=== PATIENT | female | born 1970 | race African-American/Black ===

== ENCOUNTER 2022-04-27 13:58 | Inpatient (IN) | payer MEDICAID, OTHER ==
[~2022-04-27] VITALS: Ht 165.1 cm; Wt 73.0 kg
[~2022-04-27 13:58] MED LIST: KEPP500 PO
[2022-04-27] MEDS ORDERED: SODIUM CHLORIDE 0.9% 1,000 ML IV ONE (14:30)
[2022-04-27] MEDS ORDERED: LEVETIRACETAM 500MG PREMIX 100 ML IV ONE (14:30)
[2022-04-27 15:37] LABS: HEMATOCRIT. 38.1 % (36.0-48.0); LYMPHOCYTES % 19.7 % (20.0-50.0); MEAN CORPUSCULAR HEMOGLOBIN 29.4 pg (28.0-32.0); MEAN CORPUSCULAR VOLUME 86.2 fL (81.0-99.0); MEAN PLATELET VOLUME 8.1 fl (7.4-10.4); MONOCYTES % 5.2 % (2.0-8.0); NEUTROPHILS % 74.1 % (40.0-76.0); PLATELET 281 x1000/uL (130-400); RED BLOOD CELL COUNT 4.41 mill/uL (4.2-5.4); RED CELL DISTRIBUTION WIDTH 15.4 % (11.6-14.6)
[2022-04-27 15:42] LABS: CHLORIDE 99 mEq/L (98-107)
[2022-04-27 15:56] LABS: ETHANOL BLOOD < 10 mg/dL
[2022-04-27 16:06] LABS: CARBAMAZEPINE < 0.5 ug/mL (4-12); VALPROIC ACID < 3.0 ug/mL (50-100)
[2022-04-27] MEDS ORDERED: KCL 20MEQ/100ML PREMIX 100 ML IV ONE (16:15)
[2022-04-27] MEDS ORDERED: ASPIRIN 81MG TABLET PO ONE (19:00)
[2022-04-27] MEDS ORDERED: ACETAMINOPHEN 325MG TABLET PO PRN ×2 (19:45)
[2022-04-27] MEDS ORDERED: HYDROCODONE/ACETAMINOPHEN 10/325MG TABLET PO PRN (19:45)
[2022-04-27] MEDS ORDERED: DOCUSATE SODIUM 100MG CAPSULE PO PRN (19:45)
[2022-04-27] MEDS ORDERED: IPRATROPIUM/ALBUTEROL 0.5-3(2.5)MG/3ML NEB HHN PRN (19:45)
[2022-04-27] MEDS ORDERED: ONDANSETRON HCL 4MG/2ML INJ IV PRN (19:45)
[2022-04-27] MEDS ORDERED: HYDROCODONE/ACETAMINOPHEN 5/325MG TABLET PO PRN (19:45)
[2022-04-27] MEDS ORDERED: CLONIDINE 0.1MG TABLET PO PRN (19:45)
[2022-04-27] MEDS ORDERED: LORAZEPAM 0.5MG TABLET PO PRN (19:45)
[2022-04-27 22:00] VITALS: BP 123/70
[2022-04-28] VITALS: BP 130/74
[2022-04-28 04:00] VITALS: BP 125/82
[2022-04-28 06:44] LABS: BASOPHILS % 0.9 % (0.0-2.0); EOSINOPHILS % 0.2 % (0.0-5.0); HEMATOCRIT. 36.2 % (36.0-48.0); HEMOGLOBIN. 11.8 g/dL (12.0-16.0); LYMPHOCYTES % 26.7 % (20.0-50.0); MEAN CORPUSCULAR HEMOGLOBIN 28.6 pg (28.0-32.0); MEAN CORPUSCULAR VOLUME 87.9 fL (81.0-99.0); MEAN PLATELET VOLUME 8.4 fl (7.4-10.4); MONOCYTES % 9.4 % (2.0-8.0); NEUTROPHILS % 62.8 % (40.0-76.0); PLATELET 273 x1000/uL (130-400); RED BLOOD CELL COUNT 4.11 mill/uL (4.2-5.4); RED CELL DISTRIBUTION WIDTH 15.3 % (11.6-14.6)
[2022-04-28 06:55] LABS: CHLORIDE 105 mEq/L (98-107)
[2022-04-28 08:00] VITALS: BP 150/75
[2022-04-28] MEDS ORDERED: POTASSIUM CHLORIDE 20MEQ TABLET SR PO SCH (08:00)
[2022-04-28] MEDS ORDERED: POTASSIUM CHLORIDE INJ 40 MEQ in DEXT 5% WATER 250 ML IV ONE (08:00)
[2022-04-28] MEDS: KCL 20MEQ/100ML X 2 FOR TOTAL KCL 40MEQ/200ML IV SCH ×2 (09:30→14:00)
[2022-04-28 12:00] VITALS: BP 153/73
[2022-04-28 13:22] LABS: CREATINE KINASE 129 IU/L (26-192)
[2022-04-28] MEDS: LEVETIRACETAM 500MG TABLET PO SCH ×2 (14:00→18:16)
[2022-04-28 16:00] VITALS: BP 143/83
[2022-04-28 20:00] VITALS: BP 144/90
[2022-04-28] MEDS: LAMOTRIGINE 25MG TABLET PO SCH (22:06)
[2022-04-29] VITALS: BP 147/89
[2022-04-29 04:00] VITALS: BP 141/78
[2022-04-29 06:57] LABS: BASOPHILS % 0.7 % (0.0-2.0); EOSINOPHILS % 0.8 % (0.0-5.0); HEMATOCRIT. 36.4 % (36.0-48.0); HEMOGLOBIN. 11.8 g/dL (12.0-16.0); LYMPHOCYTES % 38.2 % (20.0-50.0); MEAN CORPUSCULAR HEMOGLOBIN 28.5 pg (28.0-32.0); MEAN CORPUSCULAR VOLUME 87.6 fL (81.0-99.0); MEAN PLATELET VOLUME 8.5 fl (7.4-10.4); NEUTROPHILS % 51.3 % (40.0-76.0); PLATELET 277 x1000/uL (130-400); RED BLOOD CELL COUNT 4.16 mill/uL (4.2-5.4); RED CELL DISTRIBUTION WIDTH 15.4 % (11.6-14.6)
[2022-04-29 07:20] LABS: CHLORIDE 107 mEq/L (98-107)
[2022-04-29 08:00] VITALS: BP 142/86
[2022-04-29] MEDS: LEVETIRACETAM 500MG TABLET PO SCH ×2 (10:20→17:15)
[2022-04-29] MEDS: LAMOTRIGINE 25MG TABLET PO SCH (10:20)
[2022-04-29 12:00] VITALS: BP 138/86
[2022-04-29] MEDS ORDERED: POTASSIUM CHLORIDE 20MEQ TABLET SR PO SCH (12:45)
[2022-04-29 17:15] VITALS: BP_SYST 154; BP_DIAS 89; BP_DIAS 94
[2022-04-29 20:00] VITALS: BP 133/86
[2022-04-30] VITALS (7 sets, daily range): BP systolic 123–138; BP diastolic 70–84
[2022-04-30] MEDS ORDERED: LAM25 PO (07:21)
[2022-04-30] MEDS: LEVETIRACETAM 500MG TABLET PO SCH ×2 (09:21→17:10)
[2022-04-30] MEDS: LAMOTRIGINE 25MG TABLET PO SCH (09:21)
[2022-04-30] MEDS ORDERED: NALOXONE HCL 0.4MG/ML VIAL IV PRN (18:30)
[2022-05-01] VITALS: BP 129/80
[2022-05-01 04:00] VITALS: BP 128/76
[2022-05-01 08:00] VITALS: BP 137/73
[2022-05-01] MEDS: LAMOTRIGINE 25MG TABLET PO SCH (08:36)
[2022-05-01] MEDS: LEVETIRACETAM 500MG TABLET PO SCH (08:36)
[2022-05-01 12:00] VITALS: BP 138/84
== END 2022-05-01 17:00 | disposition home or self-care (01) | DRG 53 ==
LOC: ER 14:02 → 7WST 18:55 → ENRESERV 21:15
PROVIDERS: ADMIT Internal Medicine; ATTEND Internal Medicine
PROC: 4A00X4Z Measurement of Central Nervous Electrical Activity, External Approach (ICD-10-PCS; principal; 2022-04-29)
DX: G40.909 Epilepsy, unspecified, not intractable, without status epilepticus (principal); G92.8 Other toxic encephalopathy; I69.351 Hemiplegia and hemiparesis following cerebral infarction affecting right dominant side; G93.89 Other specified disorders of brain; D72.829 Elevated white blood cell count, unspecified; E87.6 Hypokalemia; R29.810 Facial weakness; R77.8 Other specified abnormalities of plasma proteins; I10 Essential (primary) hypertension; Z87.820 Personal history of traumatic brain injury; Z74.01 Bed confinement status
CPT/HCPCS: 36415; 70551; 71045; 80048; 80053; 80156; 80165; 80184; 80185; 80320; 82550; 83735; 84484; 85025; 93005; 93306; 95816; 99285; J1953; J3480; J7030; G0480

== ENCOUNTER 2023-04-06 04:39 | Emergency (ER) | payer MEDICAID, OTHER ==
[~2023-04-06] VITALS: Ht 172.7 cm; Wt 91.0 kg
[~2023-04-06 04:39] MED LIST changes: -KEPP500 PO; +LAM25 PO; +LEVE750T4 MT
[2023-04-06 04:42] VITALS: O2SAT 99
[2023-04-06 05:06] VITALS: TEMP 98.2
[2023-04-06] MEDS ORDERED: LEVETIRACETAM 1000MG PREMIX 100 ML IV ONE (05:15)
[2023-04-06 05:42] LABS: BASOPHILS % 0.8 % (0.0-2.0); EOSINOPHILS % 0.7 % (0.0-5.0); HEMATOCRIT. 45.6 % (36.0-48.0); HEMOGLOBIN. 14.6 g/dL (12.0-16.0); LYMPHOCYTES % 18.6 % (20.0-50.0); MEAN CORPUSCULAR HEMOGLOBIN 28.6 pg (28.0-32.0); MEAN CORPUSCULAR HGB CONC 32.1 g/dL (31.0-37.0); MEAN CORPUSCULAR VOLUME 89.1 fL (81.0-99.0); MEAN PLATELET VOLUME 8.1 fl (7.4-10.4); MONOCYTES % 5.4 % (2.0-8.0); NEUTROPHILS % 74.5 % (40.0-76.0); PLATELET 326 x1000/uL (130-400); RED BLOOD CELL COUNT 5.11 mill/uL (4.2-5.4); RED CELL DISTRIBUTION WIDTH 15.8 % (11.6-14.6); WHITE BLOOD COUNT 10.7 x1000/uL (4.5-11.0)
[2023-04-06 05:53] LABS: CHLORIDE 106 mEq/L (98-107); INDEX HEMOLYSI 4 (1-3); INDEX ICTERIC 1 (1-4); INDEX LIPEMIC 1 (1-3); POTASSIUM 3.4 mEq/L (3.5-5.1); SODIUM 138 mEq/L (136-145)
[2023-04-06 06:00] LABS: ALANINE AMINOTRANSFERASE 24 IU/L (13-61); ALBUMIN 4.1 g/dL (3.4-5.0); ASPARTATE AMINOTRANSFERASE 16 IU/L (15-37); BILIRUBIN TOTAL 0.4 mg/dL (0.1-1.0); CALCIUM 9.3 mg/dL (8.5-10.1); CARBON DIOXIDE 25 mEq/L (21-32); CREATININE 0.4 mg/dL (0.6-1.3); ETHANOL BLOOD < 10 mg/dL (-10); GLUCOSE 144 mg/dL (70-105); PROTEIN TOTAL 9.2 g/dL (6.0-8.3); UREA NITROGEN BLOOD 8 mg/dL (7-21)
[2023-04-06] MEDS ORDERED: POTASSIUM CHLORIDE 20MEQ TABLET SR PO ONE (09:45)
[2023-04-06] MEDS ORDERED: POTASSIUM CHLORIDE 20MEQ TABLET SR PO NR (12:00)
[2023-04-06 18:57] VITALS: BP 131/68; PULSE 103; RESP 18
== END 2023-04-06 19:17 | disposition home or self-care (01) ==
LOC: ER 04:39
DX: G40.909 Epilepsy, unspecified, not intractable, without status epilepticus (principal); I10 Essential (primary) hypertension; F19.90 Other psychoactive substance use, unspecified, uncomplicated; Z98.890 Other specified postprocedural states; Z88.2 Allergy status to sulfonamides; Z86.73 Personal history of transient ischemic attack (TIA), and cerebral infarction without residual deficits
CPT/HCPCS: 80053; 80320; 82962; 85025; 36415; 71045; 70450; 96365; 96366; 99285; J1953; Z7610; G0480